=== PATIENT | female | born 1945 | race Caucasian/White ===

== ENCOUNTER 2021-04-12 15:41 | Inpatient (IN) | payer MEDICARE, SELFPAY ==
[2021-04-12] VITALS (7 sets, daily range): BP systolic 91–149
[~2021-04-12] VITALS: Ht 157.5 cm; Wt 66.7 kg
--- NOTE | 2021-04-12 15:50 | NUR ---
PT ARRIVES WITH 20G IV TO RIGHT HAND- PATENT WITH NS INFUSING
--- NOTE | 2021-04-12 15:50 | NUR ---
Placed in room 03 . Placed on bank consultant, blood pressure machine and pulse oximeter. To gown for exam. Side rails up. Report given to MICAELA MATA
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
[2021-04-12] MEDS ORDERED: NACL 0.9% 1,000 ML IV ONE ×2 (16:00)
--- NOTE | 2021-04-12 16:06 | NUR ---
LAB AT THE BEDSIDE FOR BLOODW
--- NOTE | 2021-04-12 16:30 | NUR ---
DAUGHTER AT THE BEDSIDE, STATUS UPDATE GIVEN
[2021-04-12 16:37] LABS: BASOPHILS % (AUTO) 0.2 % (0.0-2.0); EOSINOPHILS % (AUTO) 0.1 % (0.0-4.0); HEMOGLOBIN 13.3 g/dL (12.0-16.0); LYMPHOCYTES # (AUTO) 0.5 K/uL (1.0-5.5); LYMPHOCYTES % (AUTO) 4.4 % (20.5-51.5); MEAN CORPUSCULAR HEMOGLOBIN 32 pg (27-31); MEAN CORPUSCULAR HGB CONC 31 % (32-36); MEAN CORPUSCULAR VOLUME 104 fL (79.0-98.0); MONOCYTES # (AUTO) 0.6 K/uL (0.0-1.0); MONOCYTES % (AUTO) 5.7 % (1.7-9.3); NEUTROPHILS # (AUTO) 9.8 K/uL (1.8-7.7); NEUTROPHILS % (AUTO) 89.6 % (40.0-70.0); PLATELET COUNT (AUTO) 143 K/uL (130-430); RED BLOOD CELL COUNT(AUTO) 4.15 MIL/uL (4.2-6.2); RED CELL DISTRIBUTION WIDTH 15.9 % (9.0-15.0); WHITE BLOOD COUNT (AUTO) 10.9 K/uL (4.8-10.8)
[2021-04-12 17:01] LABS: ANION GAP 8 (5-15); CALCIUM 10.3 mg/dL (8.4-11.0); CHLORIDE 102 mmol/L (98-107); CREATININE 1.05 mg/dL (0.55-1.30); GLUCOSE 244 mg/dL (70-99); SODIUM SERUM 143 mmol/L (136-145); UREA NITROGEN, BLOOD 36 mg/dL (8-21)
[2021-04-12 17:07] LABS: ALANINE AMINOTRANSFERASE 58 U/L (12-78); ALBUMIN 3.4 g/dL (3.4-4.8); ASPARTATE AMINOTRANSFERASE 32 U/L (10-37); LIPASE 56 U/L (73-393); TOTAL BILIRUBIN 0.4 mg/dL (0.0-1.0)
[2021-04-12] MEDS ORDERED: CEFTAZIDIME 1 GM in D5W 50 ML IV ONE (17:15)
[2021-04-12] MEDS ORDERED: VANCOMYCIN HCL 1,000 MG in NS 250 ML IV ONE (17:15)
--- NOTE | 2021-04-12 17:42 | NUR ---
REPORT GIVEN TO MICAELA RUBIO FOR CONTINUING CARE
--- NOTE | 2021-04-12 17:50 | NUR ---
UP TO BSC TOLERATED WELL, NO DISTRESS
--- NOTE | 2021-04-12 18:09 | NUR ---
FAMILY AT BEDSIDE, CALM, ALERT, NODISTRESS
[2021-04-12] MEDS ORDERED: VANCOMYCIN HCL 1000 MG/VIAL IV ONE (18:20)
[2021-04-12] MEDS ORDERED: CEFTAZIDIME 1 GM VIAL ONE ×2 (18:20→21:05)
--- NOTE | 2021-04-12 18:32 | NUR ---
DR ARCHULETA SPEAKING WITH DR ROTH AT [facility], AUTHORIZATION TO ADMIT HERE GIVEN
[2021-04-12] MEDS ORDERED: D5/0.45 NS 1,000 ML IV SCH (18:45)
--- NOTE | 2021-04-12 18:46 | NUR ---
Patient will be admitted to care of Dr. Jules. Admitted to ICU unit. Waiting for room assignment. SBAR report to be given at bedside with opportunity for questions.
--- NOTE | 2021-04-12 18:58 | NUR ---
calm, alert, resp unlabored, communicates clearly in full complete senteces, no distress
[2021-04-12] MEDS ORDERED: PRED10TA PO (19:20)
[2021-04-12] MEDS ORDERED: ROSU10TA2 PO (19:20)
[2021-04-12] MEDS ORDERED: METF-518 PO (19:20)
[2021-04-12] MEDS ORDERED: TOP25 PO ×2 (19:20)
[2021-04-12] MEDS ORDERED: GLIP2.5T3 PO (19:20)
[2021-04-12] MEDS ORDERED: LEVO112T5 PO (19:20)
[2021-04-12] MEDS ORDERED: ASPI-859 PO (19:20)
[2021-04-12] MEDS ORDERED: MULT-1089 PO (19:20)
[2021-04-12] MEDS ORDERED: HYDROcodone/ACETAMIN 5-325 MG TAB (NORCO/ VICODIN) PO PRN (19:30)
[2021-04-12] MEDS ORDERED: NALOXONE HCL 0.4 MG/ML AMP (NARCAN) IVP PRN ×2 (19:30)
[2021-04-12] MEDS ORDERED: LORazepam 2 MG/ML VIAL IVP PRN (19:30)
[2021-04-12] MEDS ORDERED: HYDROcodone/ACETAMIN 10-325 MG TAB PO PRN (19:30)
[2021-04-12] MEDS ORDERED: ACETAMINOPHEN 325 MG TABLET PO PRN ×2 (19:30→20:00)
[2021-04-12] MEDS ORDERED: ONDANSETRON HCL 4 MG/2 ML VIAL IVP PRN (19:30)
--- NOTE | 2021-04-12 19:35 | NUR ---
Patient will be admitted to care of [facility]. Admitted to ICU unit. Will go to room 8. Belongings list completed. Complete and up to date summary report printed. SBAR report to be given at bedside with opportunity for questions.
--- NOTE | 2021-04-12 19:45 | NUR ---
ICU ADMIT Patient is alert and oriented. Patient is on NC @ 6L. ST on the monitor. Skin warm and dry. Belongings at bedside. Safety precautions in place, call light within reach. Will continue to monitor.
[2021-04-12] MEDS: BUDESONIDE 0.5 MG/2 ML AMPUL.NEB INH SCH (20:00)
--- NOTE | 2021-04-12 20:15 | NUR ---
DR. MALAGON AT BEDSIDE EXAMINING PATIENT AND SPEAKING TO FAMILY ABOUT POC.
[2021-04-12] MEDS: methylPREDNISolone SOD SUCC/PF 62.5 MG/ML VIAL IVP SCH ×2 (20:41→21:01)
[2021-04-12] MEDS ORDERED: FUROSEMIDE 40 MG/4 ML VIAL ONE (20:42)
[2021-04-12] MEDS: FUROSEMIDE 40 MG/4 ML VIAL IVP SCH (20:42)
[2021-04-12] MEDS ORDERED: methylPREDNISolone SOD SUCC/PF 62.5 MG/ML VIAL ONE (20:43)
[2021-04-12] MEDS ORDERED: ATORVASTATIN 20 MG TABLET PO SCH (21:00)
[2021-04-12] MEDS ORDERED: ROSUVASTATIN CALCIUM 5 MG/TAB (CRESTOR) PO SCH (21:00)
[2021-04-12] MEDS ORDERED: TOPIRAMATE 25 MG TABLET(TOPAMAX) PO SCH (21:00)
[2021-04-12] MEDS ORDERED: ENOXAPARIN SODIUM 30 MG/0.3 ML SYRINGE ONE (22:05)
[2021-04-12] MEDS: ENOXAPARIN SODIUM 30 MG/0.3 ML SYRINGE SUBCUT SCH (22:06)
[2021-04-12] MEDS: TOPIRAMATE 25 MG TABLET(TOPAMAX) PO SCH (22:06)
[2021-04-12] MEDS: NS IV SCH (22:07)
[2021-04-12] MEDS: CEFTAZIDIME IV SCH (22:07)
--- NOTE | 2021-04-12 22:14 | NUR ---
IV PLACEMENT: # 20 gauge angiocath placed to right forearm after 3rd attempt. Use of asceptic technique. Opsite placed over site. Blood return noted. Flushed with 10 cc of normal saline. No evidence of infiltration noted. Patient tolerated well.
[2021-04-12] MEDS: IPRATROPIUM BROM 0.5 MG/2.5 ML VIAL.NEB (ATROVENT) INH SCH (23:34)
[2021-04-12] MEDS: ALBUTEROL SULFATE 0.083% 2.5 MG/3 ML VIAL.NEB INH SCH (23:34)
[2021-04-13] VITALS (24 sets, daily range): BP systolic 90–127
[2021-04-13] MEDS: IPRATROPIUM BROM 0.5 MG/2.5 ML VIAL.NEB (ATROVENT) INH SCH ×6 (04:09→23:31)
[2021-04-13] MEDS: ALBUTEROL SULFATE 0.083% 2.5 MG/3 ML VIAL.NEB INH SCH ×6 (04:09→23:31)
--- NOTE | 2021-04-13 05:35 | NUR ---
PAGED FOR CONSULT ORDERING PHYSICIAN: DR. MEREDITH REASON FOR CONSULT: SEPSIS DIALED: [phone] SPOKE TO: MAINOR
--- NOTE | 2021-04-13 05:39 | NUR ---
PAGED FOR CONSULT ,Y ORDERING PHYSICIAN: DR. MEREDITH REASON FOR CONSULT: ELEVATED TROPONIN DIALED: [phone] SPOKE TO: MARCE
[2021-04-13] MEDS: methylPREDNISolone SOD SUCC/PF 62.5 MG/ML VIAL IVP SCH ×3 (06:25→21:16)
[2021-04-13 06:27] LABS: BASOPHILS % (AUTO) 0.1 % (0.0-2.0); HEMATOCRIT 41.8 % (36-48); LYMPHOCYTES # (AUTO) 0.4 K/uL (1.0-5.5); LYMPHOCYTES % (AUTO) 3.7 % (20.5-51.5); MEAN CORPUSCULAR HEMOGLOBIN 32 pg (27-31); MEAN CORPUSCULAR HGB CONC 31 % (32-36); MEAN CORPUSCULAR VOLUME 103 fL (79.0-98.0); MONOCYTES # (AUTO) 0.3 K/uL (0.0-1.0); MONOCYTES % (AUTO) 3.4 % (1.7-9.3); NEUTROPHILS # (AUTO) 9.2 K/uL (1.8-7.7); NEUTROPHILS % (AUTO) 92.8 % (40.0-70.0); PLATELET COUNT (AUTO) 134 K/uL (130-430); RED BLOOD CELL COUNT(AUTO) 4.04 MIL/uL (4.2-6.2); WHITE BLOOD COUNT (AUTO) 9.9 K/uL (4.8-10.8)
[2021-04-13] MEDS ORDERED: LEVOTHYROXINE SODIUM 0.112 MG TABLET ONE (06:43)
[2021-04-13] MEDS: LEVOTHYROXINE SODIUM 0.112 MG TABLET PO SCH (06:52)
[2021-04-13 06:59] LABS: ANION GAP 4 (5-15); CALCIUM 9.9 mg/dL (8.4-11.0); CHLORIDE 103 mmol/L (98-107); CREATININE 0.93 mg/dL (0.55-1.30); GLUCOSE 145 mg/dL (70-99); PHOSPHORUS 5.2 mg/dL (2.7-4.5); SODIUM SERUM 142 mmol/L (136-145); UREA NITROGEN, BLOOD 36 mg/dL (8-21)
[2021-04-13] MEDS ORDERED: glipiZIDE XL 2.5 MG/TAB (GLUCOTROL XL) PO SCH (07:00)
[2021-04-13] MEDS: NS IV SCH ×3 (07:12→21:16)
[2021-04-13] MEDS: CEFTAZIDIME IV SCH ×3 (07:12→21:16)
--- NOTE | 2021-04-13 07:15 | NUR ---
RT NOTES Found pt on 4L NC, appears SOB, Saturation 84%. After ABG was obtained & resulted, placed pt back BIPAP @0732. Some improvement noted. Will notify RN of redness on pt's nose bridge.
--- NOTE | 2021-04-13 07:23 | NUR ---
ENDORSEMENT Pt care endorsed to dayshift RN using nursing SBAR.
--- NOTE | 2021-04-13 07:30 | NUR ---
OPENING NOTES PT AWAKE, ALERT, AND ORIENTED. RECEIVING BIPAP AT THIS TIME, TOLERATING WELL. IV LINE INTACT AND PATENT, NO SIGNS OF INFILTRATION NOTED. NO ACUTE DISTRESS NOTED. ALL NEEDS MET. CALL LIGHT IN REACH. FALL AND ASPIRATION PRECAUTIONS IN PLACE
[2021-04-13] MEDS: BUDESONIDE 0.5 MG/2 ML AMPUL.NEB INH SCH ×2 (07:44→19:35)
[2021-04-13] MEDS ORDERED: predniSONE 10 MG TABLET PO SCH (09:00)
--- NOTE | 2021-04-13 09:04 | NUR ---
routine meds administered as ordered per md, education given, tolerated well. pt refused glucophage at this time, explained importance and side effects, asked 3x, pt continue to refuse. all needs met. call light in reach.
[2021-04-13] MEDS: FUROSEMIDE 40 MG/4 ML VIAL IVP SCH (09:06)
[2021-04-13] MEDS: TOPIRAMATE 25 MG TABLET(TOPAMAX) PO SCH ×2 (09:07→21:16)
[2021-04-13] MEDS: ASPIRIN 81 MG TABLET(ECOTRIN) PO SCH (09:07)
[2021-04-13] MEDS: MULTIVITAMINS TAB 1 TABLET PO SCH (09:07)
[2021-04-13] MEDS: ENOXAPARIN SODIUM 30 MG/0.3 ML SYRINGE SUBCUT SCH (09:11)
--- NOTE | 2021-04-13 09:40 | NUR ---
RT NOTE: 0940 Pt placed on Hi-flow nasal cannula at 50% FiO2 and 40LPM. SpO2 between 90-95%, RR is 29-33, and HR is at 102bpm. Encouraged pt to take slow, deep breaths. MICAELA High made aware. BiPAP is on standby.
[2021-04-13] MEDS ORDERED: CARVEDILOL 3.125 MG TABLET (COREG) PO SCH (10:00)
[2021-04-13] MEDS ORDERED: CARVEDILOL 3.125 MG TABLET (COREG) PO ONE (11:00)
--- NOTE | 2021-04-13 11:28 | NUR ---
PT AND FAMILY AGREED TO TAKE METFORMIN AT THIS TIME. ADMINISTERED MEDICATION ORDERED, EDUCATION GIVEN, TOLERATED WELL.
--- NOTE | 2021-04-13 12:02 | NUR ---
SPOKE TO Regla DE LEON REGARDING BLOOD SUGAR MEDS. PT AND FAMILY STATED PT DISCONTINUED GLIPIZIDE AT HOME, EXPLAINED INSULIN AND BLOOD SUGAR ROUTINE CHECKS AT HOME, VERBALIZED THIS INFO TO Regla DE LEON ALSO STATED TO DR. MEREDITH PT'S LAST BLOOD SUGAR CHECK AND PT TOOK METFORMIN AT 1128. RECEIVED ORDERS FOR HUMULIN R SLIDING SCALE AND DISCONTINUE GLIPIZIDE, VERIFIED, AND CARRIED OUT.
--- NOTE | 2021-04-13 12:05 | NUR ---
HIGH ALERT NOTE: Called Regla Huang back at [phone] identified within the medical roster to verify physician authenticity.
--- NOTE | 2021-04-13 12:26 | NUR ---
SEEN BR DR. MALAGON AT BEDSIDE.
[2021-04-13] MEDS: INSULIN REGULAR, HUMAN 100 UNITS/ML, 10 ML VIAL (humuLIN R) SUBCUT PRN ×3 (12:45→21:33)
--- NOTE | 2021-04-13 13:40 | NUR ---
RT NOTES Attempted to put pt. back on BIPAP, but pt. is still eating. No sign of distress. Granddaughter at bedside.
--- NOTE | 2021-04-13 14:19 | NUR ---
endorsed care to kelvin garcia.
--- NOTE | 2021-04-13 14:26 | NUR ---
NURSING. APPROACHED PT, TACHYPNEIC, ALERT, CATCHING HER BREATH FOR EVERY ATTEMPTS TO SPEAK, ON O2 VIA HIGH FLOW, SKIN WARM TO UPPER EXTREMITIES, BUT COLD TO BOTH LEGS, EDEMA TO BILAT LEGS, TOES PURPLISH IN COLOR.
--- NOTE | 2021-04-13 14:35 | NUR ---
RT NOTES Placed pt back on BIPAP per Dr Schrader's order. Will cont. to monitor pt.
--- NOTE | 2021-04-13 16:00 | NUR ---
URINE SAMPLE SENT TO LAB FOR TEST.
--- NOTE | 2021-04-13 17:25 | NUR ---
RT NOTES Took pt off of bipap for meal. Placed on HFNC 50%40L Saturation 92%. No distress noted. Family at bedside.
--- NOTE | 2021-04-13 17:51 | NUR ---
CONSULT [facility]. CONSULTING MD: DR. WALKER PERSON NOTIFIED: DR. WALKER DIALED: [phone] ORDERED BY: DR. MEREDITH
--- NOTE | 2021-04-13 18:39 | NUR ---
NEUROLOGIST. DR RUDD AT BEDSIDE EXAMINING PATIENT.
--- NOTE | 2021-04-13 19:30 | NUR ---
PM SHIFT ASSESSMENT Patient is alert and oriented. Patient is on HIGH FLOW NC, RR even and unlabored. SR/ST on the monitor. Skin warm and dry. Martinez catheter in place and draining to gravity. Family visiting at bedside. Safety precautions in place, call light within reach. Will continue to monitor.
[2021-04-13] MEDS: CARVEDILOL 3.125 MG TABLET (COREG) PO SCH (21:15)
[2021-04-13] MEDS: ATORVASTATIN 20 MG TABLET PO SCH (21:15)
[2021-04-13] MEDS: DOXYCYCLINE HYCLATE 100 MG CAPSULE PO SCH (21:16)
[2021-04-14] VITALS (22 sets, daily range): BP systolic 87–112
[2021-04-14] MEDS: IPRATROPIUM BROM 0.5 MG/2.5 ML VIAL.NEB (ATROVENT) INH SCH ×6 (03:15→23:00)
[2021-04-14] MEDS: ALBUTEROL SULFATE 0.083% 2.5 MG/3 ML VIAL.NEB INH SCH ×6 (03:15→23:00)
[2021-04-14] MEDS: NS IV SCH ×3 (06:25→21:20)
[2021-04-14] MEDS: methylPREDNISolone SOD SUCC/PF 62.5 MG/ML VIAL IVP SCH ×3 (06:25→21:21)
[2021-04-14] MEDS: CEFTAZIDIME IV SCH ×3 (06:25→21:20)
[2021-04-14] MEDS: LEVOTHYROXINE SODIUM 0.112 MG TABLET PO SCH (06:26)
[2021-04-14 07:21] LABS: BASOPHILS % (AUTO) 0.4 % (0.0-2.0); HEMATOCRIT 38.7 % (36-48); HEMOGLOBIN 12.3 g/dL (12.0-16.0); LYMPHOCYTES # (AUTO) 0.4 K/uL (1.0-5.5); MEAN CORPUSCULAR HEMOGLOBIN 33 pg (27-31); MEAN CORPUSCULAR HGB CONC 32 % (32-36); MEAN CORPUSCULAR VOLUME 102 fL (79.0-98.0); MONOCYTES # (AUTO) 0.5 K/uL (0.0-1.0); MONOCYTES % (AUTO) 4.8 % (1.7-9.3); NEUTROPHILS # (AUTO) 8.5 K/uL (1.8-7.7); NEUTROPHILS % (AUTO) 90.8 % (40.0-70.0); PLATELET COUNT (AUTO) 135 K/uL (130-430); RED BLOOD CELL COUNT(AUTO) 3.77 MIL/uL (4.2-6.2); RED CELL DISTRIBUTION WIDTH 15.9 % (9.0-15.0); WHITE BLOOD COUNT (AUTO) 9.4 K/uL (4.8-10.8)
--- NOTE | 2021-04-14 07:21 | NUR ---
ENDORSEMENT Pt care endorsed to dayshift RN using nursing SBAR.
[2021-04-14 07:40] LABS: ALANINE AMINOTRANSFERASE 48 U/L (12-78); ANION GAP 5 (5-15); ASPARTATE AMINOTRANSFERASE 27 U/L (10-37); CALCIUM 9.2 mg/dL (8.4-11.0); CHLORIDE 100 mmol/L (98-107); CREATININE 1.44 mg/dL (0.55-1.30); GLUCOSE 150 mg/dL (70-99); POTASSIUM 5.2 mmol/L (3.5-5.1); SODIUM SERUM 140 mmol/L (136-145); TOTAL BILIRUBIN 0.2 mg/dL (0.0-1.0); UREA NITROGEN, BLOOD 47 mg/dL (8-21)
[2021-04-14] MEDS: MULTIVITAMINS TAB 1 TABLET PO SCH (08:35)
[2021-04-14] MEDS: DOXYCYCLINE HYCLATE 100 MG CAPSULE PO SCH ×2 (08:36→20:29)
[2021-04-14] MEDS: FUROSEMIDE 40 MG/4 ML VIAL IVP SCH (08:36)
[2021-04-14] MEDS: ASPIRIN 81 MG TABLET(ECOTRIN) PO SCH (08:36)
[2021-04-14] MEDS: TOPIRAMATE 25 MG TABLET(TOPAMAX) PO SCH ×2 (08:36→20:31)
[2021-04-14] MEDS: ENOXAPARIN SODIUM 30 MG/0.3 ML SYRINGE SUBCUT SCH (08:37)
[2021-04-14] MEDS: CARVEDILOL 3.125 MG TABLET (COREG) PO SCH ×2 (08:39→20:30)
[2021-04-14 08:55] LABS: C-REACTIVE PROTEIN QUANT 0.3 mg/dL (0-0.5)
[2021-04-14 08:58] LABS: ERYTHROCYTE SEDIMENTATION RATE 2 MM/HR (0-20)
[2021-04-14] MEDS: BUDESONIDE 0.5 MG/2 ML AMPUL.NEB INH SCH ×2 (09:32→20:34)
--- NOTE | 2021-04-14 11:00 | NUR ---
INSPECTOR RECEIVING DR Brandi MEREDITH IN THE UNIT AND WENT TO SEE PT. MADE AWARE OF K LEVEL 5.2, NO NEW ORDERS.
[2021-04-14] MEDS: INSULIN REGULAR, HUMAN 100 UNITS/ML, 10 ML VIAL (humuLIN R) SUBCUT PRN ×3 (12:36→21:43)
--- NOTE | 2021-04-14 15:14 | NUR ---
WOUND EVALUATION: Wound Consult received from Dr. Danis Jules. Thank you, Dr. Jules, for the consult. Patient received in a Go Bed with an IsoFlex LAILA mattress, awake, alert, and oriented. Patient is able to turn in bed with assist. Dawit Score is a 15. Past Medical History: Interstitial Lung Disease. Recent Labs: WBC 9.4, RBC 3.77, hemoglobin 12.3, hematocrit 38.7, potassium 5.2, BUN 47, creatinine 1.44, glucose 150, serum total protein 5.6, albumin 3.0. Microbiology: Blood culture results x2 in progress. MRSA screen results negative. Intrinsic factors that delay wound healing: Interstitial Lung Disease, Hypoalbuminemia. Extrinsic factors that delay wound healing: Decreased mobility. Wound Assessment: 1. Sacral/buttocks areas: Blanchable red erythema. Right buttock has small skin tear with no visible tissue underneath, measuring 0.7 cm x 0.7 cm. No odor, no drainage. Recommend: Cleanse skin tear with normal saline. Cleanse surrounding tissue with mild soap and water if soiled. Apply Calmoseptine cream to the area. Apply Venelex ointment to the skin tear. Cover with Sacral foam dressing. Perform site care daily, and as needed for dressing soiling or dislodgement. 2. Left Foot/Heel: Blanchable redness present on lateral and medial aspects of foot and on heel as well. Foot is warm to the touch. 3. Right Foot/Heel: Blanchable redness present on lateral and medial aspects of foot and on heel as well. Foot is warm to the touch. Recommend: Offload, elevate and float bilateral heels with 1 pillows lengthwise under each extremity at all times. Do not allow any portion of feet or heels to touch bed or other surfaces at any time. Also recommend: Encourage and assist patient as needed with repositioning side to side only every 2 hours with 1 pillow underneath each pelvis, using a second pillow to reposition side to side (leave both pillows underneath pelvis). Off-load pressure areas with pillows for pressure re-distribution. Offload, elevate and float bilateral heels with 1 pillows lengthwise under each extremity at all times. Perform skin care and monitor skin integrity Q shift. Use Calmoseptine cream on buttocks and other moisture susceptible areas QID and as needed for soiling. Initiate low air-loss therapy.
[2021-04-14] MEDS ORDERED: MENTHOL/ZINC OXIDE 113 GM OINT. TP PRN (15:30)
--- NOTE | 2021-04-14 16:43 | NUR ---
Spoke w/ TEAR CM at [place] [phone]-requested ABG's-results faxed to him at [phone]. Requested transfer order to [place] so he can initiate transfer to [facility]-RN notified to request transfer to [place] when patient is medically stable for transfer-waiting for pulmonary clearance for transfer to [place].
--- NOTE | 2021-04-14 16:45 | NUR ---
. PAGERodríguez MALAGON ([facility]) FOR ORDERS.
--- NOTE | 2021-04-14 16:46 | NUR ---
PAIN. PT ASKING TO REMOVE HER PILLOW FROM SIDE OF HER BUTTOCKS, COMPLAINING OF SORENESS, SOME PILLOWS REPLACED TO HER UPPER BACK AND LOWER LUMBAR AREA, EDUCATION PROVIDED ON PREVENTION OF BEDSORE, MEDICATED PT WITH TYLENOL 650 MG TABLET.
--- NOTE | 2021-04-14 17:25 | NUR ---
O2 R.T. SWITCHED HIGH FLOW TO OXYMIZER AT 6L, SATURATING IN THE HIGH 90'S.
--- NOTE | 2021-04-14 17:38 | NUR ---
Dietitian Recommendations 1) Continue current diet, as tolerated. 2) recommend glucerna ONS 1 bottle daily to aid in PO intake per pt's preference 3) recommend clemente BID for wound healing KW, RD
--- NOTE | 2021-04-14 18:05 | NUR ---
. DR Maria Dolores MEREDTIH EXAMINING PT AT BEDSIDE. PT ON O2 VIA OXYMIZER, FAMILY IN THE ROOM.
[2021-04-14] MEDS: NACL 0.9% 1,000 ML IV SCH (18:59)
--- NOTE | 2021-04-14 19:20 | NUR ---
OPENING NOTE Received SBAR report from off coming RN for continuity of care. Pt laying in bed awake and alert watching tv with family member. No s/s of distress noted. Pt denies any pain or discomfort at the moment. Pt on O2 via oximizer, pt tolerating well. Martinez catheter in place and draining to gravity. Call light within reach, bed locked and in lowest position, safety precautions in place.
[2021-04-14] MEDS: ATORVASTATIN 20 MG TABLET PO SCH (20:29)
--- NOTE | 2021-04-14 20:45 | NUR ---
Pt laying in bed dozing off. She continues to be alert and oriented making needs known. No s/s of distress noted. Pt denies any pain or discomfort at the moment. Pt on O2 via oximizer, pt tolerating well. Pt becomes SOB with exertion. Lower extremities are edematous and cold, elevated them. Turned and repositioned, tolerated well. Martinez catheter in place and draining to gravity (minimal output noted). Call light within reach, bed locked and in lowest position, safety precautions in place.
[2021-04-15] VITALS (23 sets, daily range): BP systolic 80–119
[2021-04-15] MEDS: ALBUTEROL SULFATE 0.083% 2.5 MG/3 ML VIAL.NEB INH SCH ×5 (03:00→23:11)
[2021-04-15] MEDS: IPRATROPIUM BROM 0.5 MG/2.5 ML VIAL.NEB (ATROVENT) INH SCH ×6 (03:00→23:11)
--- NOTE | 2021-04-15 03:45 | NUR ---
CHG bath provided and full linen change. Pt tolerated well.
[2021-04-15] MEDS: NS IV SCH ×3 (06:36→22:04)
[2021-04-15] MEDS: CEFTAZIDIME IV SCH ×3 (06:36→22:04)
[2021-04-15] MEDS: methylPREDNISolone SOD SUCC/PF 62.5 MG/ML VIAL IVP SCH ×3 (06:37→22:04)
[2021-04-15] MEDS: LEVOTHYROXINE SODIUM 0.112 MG TABLET PO SCH (06:37)
[2021-04-15 06:45] LABS: BASOPHILS # (AUTO) 0.1 K/uL (0.0-0.2); BASOPHILS % (AUTO) 0.5 % (0.0-2.0); HEMATOCRIT 42.7 % (36-48); HEMOGLOBIN 13.4 g/dL (12.0-16.0); LYMPHOCYTES # (AUTO) 0.6 K/uL (1.0-5.5); LYMPHOCYTES % (AUTO) 5.5 % (20.5-51.5); MEAN CORPUSCULAR HEMOGLOBIN 32 pg (27-31); MEAN CORPUSCULAR HGB CONC 32 % (32-36); MEAN CORPUSCULAR VOLUME 102 fL (79.0-98.0); MONOCYTES # (AUTO) 0.6 K/uL (0.0-1.0); MONOCYTES % (AUTO) 5.2 % (1.7-9.3); NEUTROPHILS # (AUTO) 9.6 K/uL (1.8-7.7); NEUTROPHILS % (AUTO) 88.8 % (40.0-70.0); PLATELET COUNT (AUTO) 139 K/uL (130-430); RED BLOOD CELL COUNT(AUTO) 4.17 MIL/uL (4.2-6.2); RED CELL DISTRIBUTION WIDTH 16.1 % (9.0-15.0); WHITE BLOOD COUNT (AUTO) 10.8 K/uL (4.8-10.8)
[2021-04-15] MEDS: INSULIN REGULAR, HUMAN 100 UNITS/ML, 10 ML VIAL (humuLIN R) SUBCUT PRN ×4 (06:49→21:55)
[2021-04-15 06:53] LABS: ANION GAP 7 (5-15); CALCIUM 8.4 mg/dL (8.4-11.0); CHLORIDE 98 mmol/L (98-107); CREATININE 1.66 mg/dL (0.55-1.30); GLUCOSE 204 mg/dL (70-99); PHOSPHORUS 5.6 mg/dL (2.7-4.5); POTASSIUM 4.9 mmol/L (3.5-5.1); SODIUM SERUM 137 mmol/L (136-145); UREA NITROGEN, BLOOD 62 mg/dL (8-21)
--- NOTE | 2021-04-15 07:28 | NUR ---
CLOSING NOTE Endorsed SBAR report to oncoming RN for continuity of care. Pt laying in bed with eyes closed, no s/s of distress noted. Pt remains on oxymizer. Call light within reach, bed locked and in lowest position, safety precautions in place.
--- NOTE | 2021-04-15 07:41 | NUR ---
INITIAL NOTES RECEIVED PT IN BED, NO C/O PAIN, PT IS AAO, CONVERSANT. PT JUST RECEIVED BREATHING TXT FROM Harish OMALLEY. PT PLACE ON O2 3LI PER OXYMIZER FOR OBSERVATION. PT HAS IV FLUIDS RUNNING, HER CATH DRAINING YELLOW URINE. WILL CONT TO MONITOR.
[2021-04-15] MEDS: ASPIRIN 81 MG TABLET(ECOTRIN) PO SCH (08:11)
[2021-04-15] MEDS: DOXYCYCLINE HYCLATE 100 MG CAPSULE PO SCH ×2 (08:11→22:03)
[2021-04-15] MEDS: MULTIVITAMINS TAB 1 TABLET PO SCH (08:11)
[2021-04-15] MEDS: CARVEDILOL 3.125 MG TABLET (COREG) PO SCH ×2 (08:12→22:03)
[2021-04-15] MEDS: TOPIRAMATE 25 MG TABLET(TOPAMAX) PO SCH ×2 (08:12→22:03)
[2021-04-15] MEDS: ENOXAPARIN SODIUM 30 MG/0.3 ML SYRINGE SUBCUT SCH (08:15)
[2021-04-15] MEDS: BALSAM PERU/CASTOR OIL 60 GM OINT...G. TP SCH (08:15)
[2021-04-15 09:04] LABS: C-REACTIVE PROTEIN QUANT < 0.2 mg/dL (0-0.5)
[2021-04-15 10:24] LABS: ERYTHROCYTE SEDIMENTATION RATE 1 MM/HR (0-20)
--- NOTE | 2021-04-15 10:43 | NUR ---
PT O2 INCREASED TO 5 LI PER MIN PT DESATS TO 87% WHEN SHE IS ASLEEP, OXIMIZER NOT SLIPPING FROM NOSE ANYMORE TAPE HAS BEEN APPLIED. O2 SAT WENT UP AGAIN TO 95% AFTER A WHILE. PT'S DAUGHTER DIMA AT BEDSIDE.
--- NOTE | 2021-04-15 10:52 | NUR ---
CM note: Faxed clinical info to [facility] # [phone] and s/w Linda/aml analyst. The pt is on 5L h[place] and continue to desat 87% per nurse's note.
--- NOTE | 2021-04-15 12:00 | NUR ---
DR Regla MEREDITH HERE AND SEEN PT, SPOKE WITH PT AND PT'S DAUGHTER AT BEDSIDE. MD ORDERED TO TRANSFER PT TO [facility] IF CLEARED BY [facility].
[2021-04-15] MEDS: BUDESONIDE 0.5 MG/2 ML AMPUL.NEB INH SCH ×2 (12:05→19:55)
--- NOTE | 2021-04-15 15:12 | NUR ---
pt given pain med for lower back pain.
--- NOTE | 2021-04-15 15:47 | NUR ---
DR MALAGON HERE AND SEEN/SPOKE WITH PT. ORDERED TO KEEP PT ON BIPAP AT NIGHT TO SPEED UP PROCESS.
[2021-04-15] MEDS ORDERED: NACL 0.9% 1,000 ML IV SCH (17:30)
--- NOTE | 2021-04-15 17:49 | NUR ---
PT'S SBP WAS ON THE 80'S, DR DRUMMOND WAS HERE AND AWARE. ORDERED TO INFORM DR MEREDITH. DR MEREDITH ORDERED TO GIVE 1 LI NS BOLUS AND MONITOR BP AND GO ON WITH TRANSFER WHEN BP IS STABLE. Addendum: 04/15/21 at 1806 by Jairo Marie RN PT'S SON AT BEDSIDE, SON WAS MADE OF CURRENT STATUS OF PT AND POC, IE. PT RECEIVING BOLUS IVF FOR LOW BP, IF BP BECOMES STABLE AFTER BOLUS PT WILL BE TRANSFERRED TO [facility].
[2021-04-15] MEDS: NACL 0.9% 1,000 ML IV SCH (18:40)
--- NOTE | 2021-04-15 18:57 | NUR ---
PAGED DR. DRUMMOND ORDERS [phone] SPOKE WITH JAMES
--- NOTE | 2021-04-15 19:04 | NUR ---
DR DRUMMOND MADE AWARE THAT PT RECEIVED I LI OF NS BOLUS PER DR MEREDITH BUT, PT'S URINE OUTPUT FOR THIS SHIFT WAS ONLY 150 CC, NEW ORDERS GIVEN AND CARRIED OUT.
--- NOTE | 2021-04-15 19:26 | NUR ---
PT ENDORSED TO MICAELA CASTILLO. PT BP STILL ON THE LOW 90 AFTER GIVEN BOLUS NS.
--- NOTE | 2021-04-15 19:30 | NUR ---
GRANDSON AND DAUGHTER VISITING EARLIER, LEFT FOR HOME.
--- NOTE | 2021-04-15 20:00 | NUR ---
LETHARGIC. ORIENTED X4. ON O2 AT 5L/OXYMIZER. FINGERS AND TOES BLUISH, COOL TO TOUCH. HER CATH PATENT WITH SCANT URINE OUTPUT NOTED.
[2021-04-15] MEDS ORDERED: ALBUMIN HUMAN 5% 500 ML IV ONE (20:30)
[2021-04-15 20:37] LABS: INR 1.3 (0.8-1.2); PROTHROMBIN TIME 13.1 SECS (9.5-12.5)
[2021-04-15 20:48] LABS: ANION GAP 7 (5-15); CALCIUM 8.2 mg/dL (8.4-11.0); CHLORIDE 99 mmol/L (98-107); CREATININE 1.47 mg/dL (0.55-1.30); GLUCOSE 281 mg/dL (70-99); POTASSIUM 5.3 mmol/L (3.5-5.1); SODIUM SERUM 132 mmol/L (136-145); UREA NITROGEN, BLOOD 67 mg/dL (8-21)
--- NOTE | 2021-04-15 21:00 | NUR ---
ACCU-CHEK 250, 4 UNITS REGULAR INSULIN SQ GIVEN PER SLIDING SCALE COV. SBP HOVERING IN THE 80'S.
--- NOTE | 2021-04-15 22:00 | NUR ---
HS CARE GIVEN.
[2021-04-15] MEDS: ATORVASTATIN 20 MG TABLET PO SCH (22:04)
[2021-04-15] MEDS ORDERED: ALBUMIN HUMAN 25% 200 ML IV ONE (22:29)
--- NOTE | 2021-04-15 22:55 | NUR ---
DR. MALAGON PAGED [phone] [address]
--- NOTE | 2021-04-15 23:00 | NUR ---
DR SUTTON UPDATED ON STATUS. NOTIFIED THAT I WASN'T ABLE TO GIVE THE ORDERED ALBUMIN BECAUSE THE WHOLE HOSPITAL DOESN'T HAVE ALBUMIN 5% [address] SUTTON CHANGED ORDER TO ALBUMIN 25% 100ML X2. CARRIED OUT AND IMPLEMENTED.
[2021-04-15] MEDS ORDERED: ALBUMIN HUMAN 25% 100 ML IV ONE ×2 (23:15→23:30)
[2021-04-16] VITALS (23 sets, daily range): BP systolic 83–121
--- NOTE | 2021-04-16 02:00 | NUR ---
HER CATH LEAKING. HER DC'D. CLEANED. AM CARE RENDERED. SKIN CARE GIVEN. PARTIAL LINEN CHANGE DONE. NEW HER CATH REINSERTED
--- NOTE | 2021-04-16 04:00 | NUR ---
SLEPT INTERMITTENTLY. ASKED FOR SIPS OF WATER. BP LABILE. REPOSITIONED. REFUSED BATH OFFERED.
[2021-04-16] MEDS: IPRATROPIUM BROM 0.5 MG/2.5 ML VIAL.NEB (ATROVENT) INH SCH ×6 (04:16→23:41)
[2021-04-16] MEDS: ALBUTEROL SULFATE 0.083% 2.5 MG/3 ML VIAL.NEB INH SCH ×6 (04:16→23:40)
[2021-04-16] MEDS ORDERED: LEVOTHYROXINE SODIUM 0.112 MG TABLET ONE (05:38)
[2021-04-16] MEDS ORDERED: methylPREDNISolone SOD SUCC 40 MG/ML VIAL ONE (05:46)
[2021-04-16] MEDS ORDERED: methylPREDNISolone SOD SUCC/PF 62.5 MG/ML VIAL ONE (05:53)
--- NOTE | 2021-04-16 06:00 | NUR ---
MULTIPLE REQUESTS. BP LABILE. UO BORDERLINE. REMAINS IN GUARDED CONDITION.
[2021-04-16] MEDS ORDERED: NOREPINEPHRINE 4 MG/4 ML VIAL IV ONE (06:17)
[2021-04-16] MEDS: INSULIN REGULAR, HUMAN 100 UNITS/ML, 10 ML VIAL (humuLIN R) SUBCUT PRN ×2 (06:29→21:13)
[2021-04-16] MEDS: methylPREDNISolone SOD SUCC/PF 62.5 MG/ML VIAL IVP SCH ×3 (06:30→21:22)
[2021-04-16] MEDS: CEFTAZIDIME IV SCH ×3 (06:30→21:21)
[2021-04-16] MEDS: NS IV SCH ×3 (06:30→21:21)
--- NOTE | 2021-04-16 06:30 | NUR ---
ACCU-CHEK 167, 2 UNITS REGULAR INSULIN SQ GIVEN. SBP IN THE 80'S, LEVOPHED STARTED AT 0.03 MCG/KG/MIN.
[2021-04-16 06:42] LABS: BASOPHILS % (AUTO) 0.2 % (0.0-2.0); HEMATOCRIT 37.2 % (36-48); HEMOGLOBIN 11.7 g/dL (12.0-16.0); LYMPHOCYTES # (AUTO) 0.4 K/uL (1.0-5.5); LYMPHOCYTES % (AUTO) 4.2 % (20.5-51.5); MEAN CORPUSCULAR HEMOGLOBIN 32 pg (27-31); MEAN CORPUSCULAR HGB CONC 32 % (32-36); MEAN CORPUSCULAR VOLUME 103 fL (79.0-98.0); MONOCYTES # (AUTO) 0.9 K/uL (0.0-1.0); NEUTROPHILS # (AUTO) 8.9 K/uL (1.8-7.7); NEUTROPHILS % (AUTO) 86.6 % (40.0-70.0); PLATELET COUNT (AUTO) 97 K/uL (130-430); RED BLOOD CELL COUNT(AUTO) 3.63 MIL/uL (4.2-6.2); RED CELL DISTRIBUTION WIDTH 16.1 % (9.0-15.0); WHITE BLOOD COUNT (AUTO) 10.3 K/uL (4.8-10.8)
[2021-04-16] MEDS: NOREPINEPHRINE BITARTRATE 4 MG in NS 246 ML IV PRN ×2 (06:53→23:59)
[2021-04-16] MEDS: LEVOTHYROXINE SODIUM 0.112 MG TABLET PO SCH (07:03)
[2021-04-16 07:07] LABS: CALCIUM 7.6 mg/dL (8.4-11.0); CHLORIDE 99 mmol/L (98-107); CREATININE 1.48 mg/dL (0.55-1.30); GLUCOSE 178 mg/dL (70-99); PHOSPHORUS 4.7 mg/dL (2.7-4.5); POTASSIUM 5.2 mmol/L (3.5-5.1); SODIUM SERUM 135 mmol/L (136-145); UREA NITROGEN, BLOOD 67 mg/dL (8-21)
[2021-04-16 07:31] LABS: ANION GAP < 3 (5-15); C-REACTIVE PROTEIN QUANT < 0.2 mg/dL (0-0.5)
[2021-04-16] MEDS: BUDESONIDE 0.5 MG/2 ML AMPUL.NEB INH SCH ×2 (07:46→19:00)
[2021-04-16] MEDS: ASPIRIN 81 MG TABLET(ECOTRIN) PO SCH (08:58)
[2021-04-16] MEDS: BALSAM PERU/CASTOR OIL 60 GM OINT...G. TP SCH (08:58)
[2021-04-16] MEDS: DOXYCYCLINE HYCLATE 100 MG CAPSULE PO SCH ×2 (08:58→21:20)
[2021-04-16] MEDS: CARVEDILOL 3.125 MG TABLET (COREG) PO SCH ×2 (09:00→21:19)
[2021-04-16] MEDS: ENOXAPARIN SODIUM 30 MG/0.3 ML SYRINGE SUBCUT SCH (09:00)
[2021-04-16] MEDS: TOPIRAMATE 25 MG TABLET(TOPAMAX) PO SCH ×2 (09:06→21:20)
[2021-04-16] MEDS: MULTIVITAMINS TAB 1 TABLET PO SCH (09:06)
--- NOTE | 2021-04-16 10:24 | NUR ---
HALIMA: HALIMA CALLED UNIT FOR PATIENT UPDATE, UPDATE GIVEN TO JUSTIN OVER PHONE ALL QUESTIONS ANSWERED.
[2021-04-16] MEDS ORDERED: SODIUM POLYSTYRENE SULFONATE 15 GM/60 ML UDBTL PO ONE (10:30)
[2021-04-16] MEDS: NACL 0.9% 1,000 ML IV SCH ×2 (10:45→13:39)
[2021-04-16 11:29] LABS: ERYTHROCYTE SEDIMENTATION RATE 1 MM/HR (0-20)
[2021-04-16 13:58] LABS: CLARITY/URINE CLEAR (CLEAR); COLOR,URINE YELLOW (YELLOW)
[2021-04-16 13:59] LABS: BILIRUBIN,URINE NEGATIVE (NEGATIVE); BLOOD, URINE 2+ (NEGATIVE); GLUCOSE,URINE NEGATIVE (NEGATIVE); KETONES,URINE TRACE (NEGATIVE); LEUKOCYTE ESTERASE ,URINE NEGATIVE (NEGATIVE); NITRITE, URINE NEGATIVE (NEGATIVE); PH,URINE 5.5 (5.0-8.0); PROTEIN URINE 2+ (NEGATIVE); UROBILINOGEN,URINE 0.2 (0.2-1.0)
[2021-04-16] MEDS ORDERED: FUROSEMIDE 20 MG/2 ML VIAL IVP ONE (15:00)
[2021-04-16 15:02] LABS: BACTERIA,URINE FEW /HPF (None Seen); WBC,URINE 0-3 /HPF (0-3)
[2021-04-16 15:03] LABS: HYALINE CASTS, URINE 0-10 /LPF (None Seen)
--- NOTE | 2021-04-16 20:00 | NUR ---
GRANDSON ASSISTS WITH FEEDING DINNER TO PT. APPETITE POOR. GRANDSON REQUESTS DIET TO BE FINELY CHOPPED. DENTURES REMOVED AND RINSED, PLACED IN CONTAINER. PT COOPERATIVE. ON LEVOPHED AT 0.06 MCG/KG/MIN.
--- NOTE | 2021-04-16 21:00 | NUR ---
ACCU-CHEK 245, 4 UNITS REGULAR INSULIN SQ GIVEN PER SLIDING SCALE COV. RT PLACED PT ON BIPAP /, BUR 20, FIO2 65%.
[2021-04-16] MEDS: ATORVASTATIN 20 MG TABLET PO SCH (21:19)
--- NOTE | 2021-04-16 23:30 | NUR ---
FIO2 DECREASED TO 50%.
[2021-04-17] VITALS (22 sets, daily range): BP systolic 53–141
--- NOTE | 2021-04-17 00:40 | NUR ---
PT FEELS UNCOMFORTABLE WITH BIPAP, PLACED ON O2 OXYMIZER AT 8L/MIN. SUKUMAR WELL.
--- NOTE | 2021-04-17 01:00 | NUR ---
MIDLINE INSERTED IN RIGHT UPPER ARM, GOOD TO USE PER PICC LINE NURSE
--- NOTE | 2021-04-17 02:00 | NUR ---
REPORT GIVEN TO CASSY CID FOR CONTINUATION OF CARE.
[2021-04-17] MEDS: IPRATROPIUM BROM 0.5 MG/2.5 ML VIAL.NEB (ATROVENT) INH SCH ×4 (03:50→15:34)
[2021-04-17] MEDS: ALBUTEROL SULFATE 0.083% 2.5 MG/3 ML VIAL.NEB INH SCH ×4 (03:50→15:34)
[2021-04-17] MEDS: LEVOTHYROXINE SODIUM 0.112 MG TABLET PO SCH (06:36)
[2021-04-17] MEDS: methylPREDNISolone SOD SUCC/PF 62.5 MG/ML VIAL IVP SCH ×2 (06:36→13:20)
[2021-04-17] MEDS: NS IV SCH (06:45)
[2021-04-17] MEDS: CEFTAZIDIME IV SCH (06:45)
[2021-04-17] MEDS: INSULIN REGULAR, HUMAN 100 UNITS/ML, 10 ML VIAL (humuLIN R) SUBCUT PRN ×2 (06:54→13:33)
[2021-04-17 07:05] LABS: ALANINE AMINOTRANSFERASE 89 U/L (12-78); ALBUMIN 3.5 g/dL (3.4-4.8); ANION GAP 8 (5-15); ASPARTATE AMINOTRANSFERASE 47 U/L (10-37); CALCIUM 7.9 mg/dL (8.4-11.0); CHLORIDE 100 mmol/L (98-107); CREATININE 1.59 mg/dL (0.55-1.30); GLUCOSE 205 mg/dL (70-99); PHOSPHORUS 5.1 mg/dL (2.7-4.5); POTASSIUM 5.2 mmol/L (3.5-5.1); SODIUM SERUM 138 mmol/L (136-145); TOTAL BILIRUBIN 0.5 mg/dL (0.0-1.0); UREA NITROGEN, BLOOD 72 mg/dL (8-21)
[2021-04-17 07:14] LABS: BASOPHILS # (AUTO) 0.1 K/uL (0.0-0.2); BASOPHILS % (AUTO) 0.6 % (0.0-2.0); HEMATOCRIT 41.6 % (36-48); HEMOGLOBIN 12.8 g/dL (12.0-16.0); LYMPHOCYTES # (AUTO) 0.6 K/uL (1.0-5.5); LYMPHOCYTES % (AUTO) 3.8 % (20.5-51.5); MEAN CORPUSCULAR HEMOGLOBIN 32 pg (27-31); MEAN CORPUSCULAR HGB CONC 31 % (32-36); MEAN CORPUSCULAR VOLUME 104 fL (79.0-98.0); MONOCYTES # (AUTO) 1.3 K/uL (0.0-1.0); MONOCYTES % (AUTO) 8.4 % (1.7-9.3); NEUTROPHILS # (AUTO) 13.3 K/uL (1.8-7.7); PLATELET COUNT (AUTO) 104 K/uL (130-430); RED BLOOD CELL COUNT(AUTO) 4.01 MIL/uL (4.2-6.2); RED CELL DISTRIBUTION WIDTH 16.5 % (9.0-15.0); WHITE BLOOD COUNT (AUTO) 15.2 K/uL (4.8-10.8)
[2021-04-17] MEDS: BUDESONIDE 0.5 MG/2 ML AMPUL.NEB INH SCH (07:24)
--- NOTE | 2021-04-17 07:30 | NUR ---
Received report to assume care of the patient. Pt lethargic with head bent down sitting up in bed. Doesn't respond to name calling. 02 10L oximizer in use. 02 sats 92%. Lungs with rhonchi bilaterally. Martinez cath with bernardo urine in bag. Right upper arm Midline in place with levophed infusing at 0.06 mcgs/kg/min. ST on monitor rate 104. Pt has bruising to arms and bilateral heel blanchable redness noted. Heels lifted off bed on pillows. Call zamora in reach.
--- NOTE | 2021-04-17 07:50 | NUR ---
Dr. Mathew rounded and plan of care discussed. She said she will call the pts daughter today.
--- NOTE | 2021-04-17 08:30 | NUR ---
Pt placed on bipap but would only stay on it for about 20 mins and then pulls off the mask and says no, I dont doesn't want it. Pt definitely responds to bipap but unable to tolerate it. Placed on high flow 50 % by RT.
[2021-04-17] MEDS: MULTIVITAMINS TAB 1 TABLET PO SCH (09:00)
[2021-04-17] MEDS: ASPIRIN 81 MG TABLET(ECOTRIN) PO SCH (09:00)
[2021-04-17] MEDS: CARVEDILOL 3.125 MG TABLET (COREG) PO SCH (09:00)
[2021-04-17] MEDS: DOXYCYCLINE HYCLATE 100 MG CAPSULE PO SCH (09:00)
[2021-04-17] MEDS: TOPIRAMATE 25 MG TABLET(TOPAMAX) PO SCH (09:00)
[2021-04-17 09:10] LABS: C-REACTIVE PROTEIN QUANT < 0.2 mg/dL (0-0.5)
--- NOTE | 2021-04-17 09:15 | NUR ---
Family in to see pt. They wanted to know what the plan is. I suggested comfort measures or hospice. Questions answered.
[2021-04-17 09:58] LABS: ERYTHROCYTE SEDIMENTATION RATE 1 MM/HR (0-20)
[2021-04-17] MEDS ORDERED: FUROSEMIDE 20 MG/2 ML VIAL IVP ONE (11:30)
[2021-04-17 11:41] LABS: NEUTROPHILS % (AUTO) 87.2 % (40.0-70.0)
[2021-04-17] MEDS ORDERED: MEROPENEM 500 MG in NS 50 ML IV SCH (12:00)
[2021-04-17] MEDS: BALSAM PERU/CASTOR OIL 60 GM OINT...G. TP SCH (13:18)
[2021-04-17] MEDS: ENOXAPARIN SODIUM 30 MG/0.3 ML SYRINGE SUBCUT SCH (13:22)
--- NOTE | 2021-04-17 14:50 | NUR ---
Dr. Mathew spoke with family and family requesting comfort care to be started in the hospital. Dr. Mathew would like me to talk to Dr. Jules about it. Pt remains lethargic on high flow 02, head bent over in the bed. Ocassionally opens eye to name. Levophed at 0.03mcgs/kg/min. Wound care done to sacral wound with venelex and z guard.
--- NOTE | 2021-04-17 15:15 | NUR ---
Call out to Dr. Jules.
--- NOTE | 2021-04-17 15:25 | NUR ---
Update given on families wishes for comfort measures given to Dr. Jules.
--- NOTE | 2021-04-17 15:50 | NUR ---
Spoke with Dr. Dupree informed her that Dr. Jules was in agreement with comfort measures. Orders left for comfort care. Family at bedside. They would like to start the morphine after their son gets off work and comes to the hospital to see the patient.
[2021-04-17] MEDS ORDERED: COMMUNICATION ORDER XX ONE (16:00)
[2021-04-17] MEDS ORDERED: NALOXONE HCL 0.4 MG/ML AMP (NARCAN) IVP PRN (16:00)
[2021-04-17] MEDS ORDERED: MORPHINE SULFATE IN 0.9 % NACL 100 ML IV PRN (16:00)
--- NOTE | 2021-04-17 18:45 | NUR ---
Levophed turned off at this time. Morphine infusing at 5mg/hr.
--- NOTE | 2021-04-17 19:15 | NUR ---
REPORT GIVEN TO ONCOMING STAFF. MORPHINE DRIP AT 5MG/HR AND FAMILY AT BEDSIDE.
--- NOTE | 2021-04-17 21:18 | NUR ---
Patient at 2117, MICAELA candelaria as the second nurse to confirm . No pulse, breaths or heart sounds noted. aware. Addendum: 04/17/21 at 2205 by Barb Willard RN RN to confirm with 2nd RN is Blayne, not Jaimie.
--- NOTE | 2021-04-17 21:26 | NUR ---
NOTIFIED OF PT EXPIRATION ,NIKKO [phone] -SPOKE TO: DR.SANDHU GURROLA,[facility] [phone] -[facility] [place] [phone] -SPOKE TO: [facility] [phone] -SPOKE TO: NO ANSWER UNABLE TO LEAVE MESSAGE [facility] [phone] -MICHELE PORTER -SPOKE TO: STEPHAN
--- NOTE | 2021-04-17 21:45 | NUR ---
Family at bedside. [employer] called and got reference number [id number], cleared to release body. Materials Engineer called at 2145, ok to release body, s/w Donald. Christopher called to arrange body olive picker, location is [facility] in [place]. All MDs have been called to be informed of .
--- NOTE | 2021-04-18 00:29 | NUR ---
[facility] [place] [facility] picked up the patient at 0025. Papers were signed and filed in chart. There were no belongings endorsed.
[2021-04-18] MEDS ORDERED: FUROSEMIDE 20 MG/2 ML VIAL IVP SCH (09:00)
== END 2021-04-17 21:18 | DRG 871 ==
LOC: SED 15:41 → SIC 18:43
PROVIDERS: ADMIT Preventive Medicine Preventive Medicine/Occupational Environmental Medicine; ATTEND Preventive Medicine Preventive Medicine/Occupational Environmental Medicine
PROC: 5A09357 Assistance with Respiratory Ventilation, Less than 24 Consecutive Hours, Continuous Positive Airway Pressure (ICD-10-PCS; principal; 2021-04-12)
PROC: 5A09357 Assistance with Respiratory Ventilation, Less than 24 Consecutive Hours, Continuous Positive Airway Pressure (ICD-10-PCS; 2021-04-14)
PROC: 5A09357 Assistance with Respiratory Ventilation, Less than 24 Consecutive Hours, Continuous Positive Airway Pressure (ICD-10-PCS; 2021-04-16)
DX: A41.9 Sepsis, unspecified organism (principal); R65.21 Severe sepsis with septic shock; J96.21 Acute and chronic respiratory failure with hypoxia; J96.22 Acute and chronic respiratory failure with hypercapnia; N17.0 Acute kidney failure with tubular necrosis; I21.A1 Myocardial infarction type 2; J15.6 Pneumonia due to other Gram-negative bacteria; E87.2 Acidosis; E44.0 Moderate protein-calorie malnutrition; J44.1 Chronic obstructive pulmonary disease with (acute) exacerbation; J44.0 Chronic obstructive pulmonary disease with (acute) lower respiratory infection; E87.1 Hypo-osmolality and hyponatremia; I27.81 Cor pulmonale (chronic); E11.65 Type 2 diabetes mellitus with hyperglycemia; I36.1 Nonrheumatic tricuspid (valve) insufficiency; I27.20 Pulmonary hypertension, unspecified; E87.5 Hyperkalemia; E88.09 Other disorders of plasma-protein metabolism, not elsewhere classified; E11.51 Type 2 diabetes mellitus with diabetic peripheral angiopathy without gangrene; E86.1 Hypovolemia; Z66 Do not resuscitate; J84.10 Pulmonary fibrosis, unspecified; Z20.822 Contact with and (suspected) exposure to COVID-19; E83.39 Other disorders of phosphorus metabolism; E83.51 Hypocalcemia; I11.0 Hypertensive heart disease with heart failure; I50.9 Heart failure, unspecified; D69.6 Thrombocytopenia, unspecified; Z88.0 Allergy status to penicillin; Z88.8 Allergy status to other drugs, medicaments and biological substances; Z68.26 Body mass index [BMI] 26.0-26.9, adult; Z87.01 Personal history of pneumonia (recurrent); Z79.01 Long term (current) use of anticoagulants
CPT/HCPCS: 36415; 36600; 71045; 76770; 80048; 80053; 81000; 82140; 82803-TC; 82962; 83605; 83690; 83735; 83880; 84100; 84484; 85025; 85379; 85610-TC; 85651-TC; 86140; 86710; 86738; 87040-TC; 87081; 87449; 93005; 93306; 93880; 93970; 94640; 94660; 96361; 96365; 96366; 96367; 99291; J0713; J1030; J1650; J1815; J1940; J2185; J2270; J2930; J3370; J7050; J7613; J7626; P9041